=== PATIENT | female | born 1995 | race Caucasian/White ===

== ENCOUNTER 2019-03-16 11:04 | Emergency (ER) | payer OTHER, SELFPAY ==
[2019-03-16 11:28] VITALS: BP 121/76; PULSE 79; RESP 18; TEMP 36.6; O2SAT 100; BMI 34.2
--- NOTE | 2019-03-16 11:44 | DI.RAD.S_ITS ---
PROCEDURE: XR ACUTE ABDOMEN SERIES INDICATIONS: nausea, occiasional pain TECHNIQUE: One view chest and two views of the abdomen were acquired. COMPARISON: None. FINDINGS: Surgical changes and devices: None. Chest: Lungs are clear. Heart size is normal. No pleural effusions. No pneumoperitoneum. Abdomen: Bowel gas pattern is normal. No air-filled distended small bowel loops are evident demonstrating air-fluid levels. The calcification within the right upper quadrant may represent a gallstone. Visualized solid organ contours appear normal. Bones: No suspicious bony lesions. IMPRESSION: 1. No bowel obstruction. 2. Possible cholelithiasis. 3. No acute cardiopulmonary process. Dictated by: Eduardo Moffett M.D. on 03/16/2019 at 11:18 Approved by: Eduardo Moffett M.D. on 03/16/2019 at 11:20
--- NOTE | 2019-03-16 11:45 | DI.US.S_ITS ---
PROCEDURE: US ABDOMEN LIMITED INDICATIONS: NAUSEA X 2 DAYS, HISTORY OF GALLBLADDER PROBLEMS TECHNIQUE: Real-time focused scanning was performed of the abdomen, with image documentation. COMPARISON: None. FINDINGS: Imaged portions of the liver demonstrates increased echogenicity when compared to the right kidney. No obvious liver lesions are identified. The gallbladder is normal in size and contains a 1.5 cm mobile gallstone. No significant wall thickening is present. No pericholecystic fluid is evident. The patient did not exhibit a positive sonographic Jeffers's sign. The common bile duct is normal in size and measures approximately 2 mm. Please note that the right kidney, pancreas, abdominal aorta, and inferior vena cava where it are not imaged or not adequately imaged. IMPRESSION: 1. Cholelithiasis without convincing evidence of acute cholecystitis. 2. Probable hepatic steatosis. Please correlate clinically. Dictated by: Eduardo Moffett M.D. on 03/16/2019 at 11:59 Approved by: Eduardo Moffett M.D. on 03/16/2019 at 12:01
--- NOTE | 2019-03-16 11:46 | PC.NURSE ---
Pt complains of nausea at am BM and for 30 minutes post BM. Stools range from liquid/loose to soft formed.
[2019-03-16 11:51] LABS: Bacteria Urine None Seen; WBC Urine None Seen (0-5/HPF)
[2019-03-16 12:00] LABS: Culture Indicated Urine Cult Not Indicated; RBC Urine 5-10/HPF (0-5/HPF); Squamous Epithelial Cell Urine 5-10 /HPF (0-5/HPF)
--- NOTE | 2019-03-16 12:10 | ED_ITS ---
HPI - Nausea/Vomiting/Diarrhea General Chief complaint: Nausea/Vomiting/Diarrhea Stated complaint: nauseous x2 days Time Seen by Provider: 03/16/19 11:05 Source: patient Mode of arrival: Ambulatory Limitations: no limitations History of Present Illness HPI Narrative: 23-year-old female nonsmoker with history of arthritis presents with significant other and a chief complaint of severe nausea for the past 2 days with episodes lasting approximately 30 minutes in the morning soon after the attempt at a bowel movement. This nausea resolved without any specific intervention and results and no vomiting. At no point has she had any fever chills nor any pain. She is otherwise well and free of complaint and can libra erate oral hydration and food without difficulty. She has had some new medications added including meloxicam. Her last menstrual period was about 2 months ago, it is not abnormal for her to be miss periods. complaint: nausea Onset (ago): day(s) Description of Diarrhea: none Associated Abdominal Pain: No Severity: mild Relieving factors: none Exacerbating factors: bowel movement Associated symptoms: denies other symptoms Related Data Previous Rx's Medication Instructions Recorded ondansetron 4 mg PO TID-QID PRN #10 tab 03/16/19 pantoprazole [Protonix] 40 mg PO DAILY #30 tab 03/16/19 Allergies Allergy/AdvReac Type Severity Reaction Status Date / Time No Known Drug Allergies Allergy Verified 03/16/19 11:28 Review of Systems Constitutional Constitutional: Denies chills, Denies fatigue, Denies fever(s), Denies frequent falls, Denies lethargy and Denies weakness Eyes Eyes: Denies change in vision, Denies eye discharge, Denies irritation and Denies loss of vision ENT Ears, Nose, Mouth, and Throat: Denies change in voice, Denies dizziness, Denies neck pain, Denies sore throat and Denies throat swelling Cardiovascular Cardiovascular: Denies chest pain, Denies irregular heart rhythm, Denies lightheadedness, Denies palpitations, Denies dyspnea, Denies dyspnea on exertion and Denies orthopnea Respiratory Respiratory: Denies cough, Denies dyspnea, Denies dyspnea on exertion and Denies wheezing Gastrointestinal Gastrointestinal: Denies abdominal pain, Denies change in bowel habits, Denies diarrhea, Reports nausea and Denies vomiting Genitourinary Genitourinary: Denies hematuria, Denies flank pain, Denies urinary incontinence and Denies urinary urgency Musculoskeletal Musculoskeletal: Denies back pain, Denies muscle weakness, Denies neck pain, Denies numbness and Denies tingling Integumentary/Breasts Skin/Breast: Denies pruritus, Denies erythema, Denies rash and Denies wounds Neurologic Neurologic: Denies behavioral changes, Denies confusion, Denies dizziness, Denies frequent falls, Denies loss of vision, Denies numbness, Denies tingling and Denies weakness Psychiatric Psychiatric: Denies anxiety, Denies behavioral changes, Denies confusion, Denies depression, Denies homicidal ideation and Denies suicidal ideation Endocrine Endocrine: Denies fatigue, Denies flushing and Denies palpitations Hematologic/Lymphatic Hematologic/Lymphatic: Denies easy bruising Allergic/Immunologic Allergic/Immunologic: Denies urticaria, Denies throat swelling and Denies wheezing Patient History Social History Smoking Status: Never smoker Substance Use Type: marijuana Exam Narrative Exam Narrative: GENERAL: [23] year old patient appears stated age. Well- nourished, well-developed patient, in mild distress. HEAD: Atraumatic. Normocephalic. EYES: Pupils equal round and reactive. Extraocular motions intact. No scleral icterus. No injection or drainage. ENT: Nose without bleeding, purulent drainage. Throat without erythema, tonsillar hypertrophy or exudate. Airway patent. NECK: Trachea midline. Non tender CARDIOVASCULAR: Regular rate and rhythm without murmurs, gallops, or rubs. RESPIRATORY: Clear to auscultation. Breath sounds equal bilaterally. No wheezes, rales, or rhonchi. GASTROINTESTINAL: Abdomen soft, non-tender, nondistended. EXTREMITIES: No edema or joint tenderness. BACK: Nontender without deformity or crepitance. No flank tenderness. NEURO: AOx3. SKIN: No rash or erythema of visible areas Initial Vital Signs Initial Vital Signs: Vital Signs Temperature 97.9 F 03/16/19 11:28 Pulse Rate 79 03/16/19 11:28 Respiratory Rate 18 03/16/19 11:28 Blood Pressure 121/76 03/16/19 11:28 Pulse Oximetry 100 03/16/19 11:28 Course Orders Ordered: ED Orders 03/16/19 11:44 XR acute abdomen series Stat 03/16/19 11:45 US abdomen limited Stat 03/16/19 11:48 Urine Microscopic Stat 03/16/19 12:10 Complete Blood Count AUTO DIFF Stat Comprehensive Metabolic Panel Stat Lipase Stat Vital Signs Vital signs: Vital Signs - 8 hr 03/16/19 11:28 03/16/19 13:15 Temperature 97.9 F Pulse Rate 79 77 Respiratory Rate 18 16 Blood Pressure 121/76 111/72 Pulse Oximetry 100 96 MDM - Nausea/Vomiting/Diarrhea Lab Data Result diagrams: 03/16/19 12:10 03/16/19 12:10 Labs: Lab Results 03/16/19 03/16/19 03/16/19 Range/Units 11:48 12:10 12:10 WBC 9.4 (4.5-11.0) X10^3/uL RBC 4.96 (4.0-5.2) X10^6/uL Hgb 14.7 (12.0-16.0) g/dL Hct 43.2 (36-46) % MCV 87.1 (80-100) fL MCH 29.7 (26-34) PG MCHC 34.1 (30-36) % RDW 13.2 (11.6-14.8) % Plt Count 261 (150-400) X10^3/uL Neut % (Auto) 63.2 (50-75) % Lymph % (Auto) 28.7 (25-40) % [place] % (Auto) 4.6 (3-14) % Eos % (Auto) 1.1 L (2-4) % Baso % (Auto) 2.4 H (0-2) % Neut # (Auto) 5900 (6624-2487) /uL Lymph # (Auto) 2700 (3111-7654) /uL [place] # (Auto) 400 (0-900) /uL Eos # (Auto) 100 (0-450) /uL Baso # (Auto) 200 H (0-100) /uL Sodium 140 (137-145) mmol/L Potassium 4.7 (3.4-5.1) mmol/L Chloride 106 (98-107) mmol/L Carbon Dioxide 23 (22-32) mmol/L BUN 11 (7-17) mg/dL Creatinine 0.70 (0.52-1.04) mg/dL Estimated GFR > 60.0 (>60) mL/min BUN/Creatinine Ratio 15.7 (6-22) Glucose 93 (70-100) mg/dL Calcium 10.0 (8.4-10.2) mg/dL Total Bilirubin 0.6 (0.2-1.3) mg/dL AST 32 (14-36) IU/L ALT 18 (<35) IU/L Alkaline Phosphatase 90 (38-126) U/L Total Protein 8.7 H (6.3-8.2) g/dL Albumin 5.0 (3.5-5.0) g/dL Globulin 3.7 (1.7-4.1) g/dL Albumin/Globulin Ratio 1.4 (1.0-2.8) Lipase 103 (23-300) U/L Urine RBC 5-10/hpf H (0-5/HPF) Urine WBC None seen (0-5/HPF) Ur Squamous Epith Cells 5-10 /hpf H (0-5/HPF) Urine Bacteria None seen (None) Ur Culture Indicated? Cult not indicated Point of Care Testing Test Results Negative Urine Dip Bedside Urine Glucose Negative Bedside Urine Bilirubin - Negative Bedside Urine Ketone - Negative Urine Specific [place] 1.010 Bedside Urine Occult Blood + Bedside Urine pH 6.0 Bedside Urine Protein - Negative Bedside Urine Urobilinogen - Negative Bedside Urine Nitrite - Negative Bedside Urine Leukocytes - Negative Esterase Discharge Plan Departure Patient Disposition: Home Clinical Impression: Nausea Discharge Date/Time: 03/16/19 13:15 Instructions: DI for Nausea -- Adult Activity Restrictions/Additional Instructions: 1. Drink plenty of fluids with frequent small sips. 2. For the next 24 hours a clear liquid diet is advised. After that please e mploy a brat diet which would include bananas, rice, apples, toast. 3. Please take medications as directed. 4. Please follow-up with your doctor in the next 1-2 days. Call the office for an appointment. 5. Please return to the emergency Department for any worsening or persistent symptoms, such as increasing pain or fever. Prescriptions: New pantoprazole [Protonix] 40 mg tablet,delayed release (DR/EC) 40 mg PO DAILY Qty: 30 RF: 0 ondansetron 4 mg tablet,disintegrating 4 mg PO TID-QID PRN (Reason: nausea and vomiting) Qty: 10 RF: 0 Referrals: Srinivasa Montanez MD [Physician] -
[2019-03-16 12:24] LABS: Add Manual Diff / Slide Review NO; Basophils Absolute Auto 200 /uL (0-100); Basophils Percent Auto 2.4 % (0-2); Eosinophils Absolute Auto 100 /uL (0-450); Eosinophils Percent Auto 1.1 % (2-4); Hematocrit 43.2 % (36-46); Hemoglobin 14.7 g/dL (12.0-16.0); Lymphocytes Absolute Auto 2700 /uL (1100-4500); Lymphocytes Percent Auto 28.7 % (25-40); Mean Corpuscular HGB Conc 34.1 % (30-36); Mean Corpuscular Hemoglobin 29.7 PG (26-34); Mean Corpuscular Volume 87.1 fL (80-100); Monocytes Absolute Auto 400 /uL (0-900); Monocytes Percent Auto 4.6 % (3-14); Neutrophils Absolute Auto 5900 /uL (1500-7000); Neutrophils Percent Auto 63.2 % (50-75); Red Blood Cell Count 4.96 X10^6/uL (4.0-5.2); Red Cell Distribution Width 13.2 % (11.6-14.8); White Blood Cell Count 9.4 X10^3/uL (4.5-11.0)
[2019-03-16 12:29] LABS: Alanine Aminotransferase 18 IU/L (<35); Albumin Globulin Ratio 1.4 (1.0-2.8); Alkaline Phosphatase 90 U/L (38-126); Aspartate Aminotransferase 32 IU/L (14-36); BUN Creatinine Ratio 15.7 (6-22); Bilirubin Total 0.6 mg/dL (0.2-1.3); Blood Urea Nitrogen 11 mg/dL (7-17); Carbon Dioxide 23 mmol/L (22-32); Chloride 106 mmol/L (98-107); Estimated Glomerular Filt Rate > 60.0 mL/min (>60); Globulin 3.7 g/dL (1.7-4.1); Glucose 93 mg/dL (70-100); HEMOLYSIS 63 (0-50); Lipase 103 U/L (23-300); Potassium 4.7 mmol/L (3.4-5.1); Sodium 140 mmol/L (137-145); Total Protein 8.7 g/dL (6.3-8.2)
[2019-03-16 13:05] LABS: Platelet Count 261 X10^3/uL (150-400)
[2019-03-16 13:15] VITALS: BP 111/72; PULSE 77; RESP 16; O2SAT 96
== END 2019-03-16 13:15 | disposition home or self-care (01) ==
PROVIDERS: Emergency Provider Emergency Medicine
DX: R11.0 Nausea (principal); R10.9 Unspecified abdominal pain
CPT/HCPCS: 36415; 74022; 76705; 80053; 81003; 81015; 81025; 83690; 85025; 99282; 99284

== ENCOUNTER 2019-09-29 19:42 | Emergency (ER) | payer OTHER, SELFPAY ==
[2019-09-29 20:06] VITALS: BP 123/73; PULSE 92; RESP 18; TEMP 36.7; O2SAT 100; BMI 30.2
--- NOTE | 2019-09-29 21:05 | ED.ANXIETY ---
HPI - Anxiety General Chief Complaint: Anxiety Stated Complaint: mental health issues Time Seen by Provider: 09/29/19 20:59 Source: patient Mode of arrival: Ambulatory Limitations: no limitations History of Present Illness HPI narrative: Patient is a 24-year-old female here for evaluation of what she states was anxiety and a panic attack earlier today. She does have a history of anxiety panic attacks. She is not currently on any medications for these. She states that normally she can control these attacks with behavior modifications during the time. She states that she occasionally has self harm thoughts during these time. She denies them as suicidal thoughts. She states that often they are fleeting and she states she would never act on any of them. She does state that earlier today the thoughts were much more pervasive. She did not actually harm herself and currently does not have any suicidal or self-harm thoughts. She is here to see if she could get short-term anxiety medicines until she can talk with her counselor and also her primary provider. Related Data Home Medications Medication Instructions Recorded Confirmed cholecalciferol (vitamin D3) 1,250 50,000 unit PO QWEEK 03/20/19 03/20/19 mcg (50,000 unit) capsule ferrous sulfate 325 mg (65 mg 325 mg PO DAILY 03/20/19 03/20/19 iron) tablet meloxicam 15 mg tablet 15 mg PO DAILY 03/20/19 03/20/19 Previous Rx's Medication Instructions Recorded ondansetron 4 mg PO TID-QID PRN #10 tab 03/16/19 pantoprazole [Protonix] 40 mg PO DAILY #30 tab 03/16/19 lorazepam [Ativan] 0.5 mg PO TID PRN #20 tab 09/29/19 Allergies Allergy/AdvReac Type Severity Reaction Status Date / Time No Known Drug Allergies Allergy Verified 03/20/19 10:18 Review of Systems Constitutional Constitutional: Denies headache(s) ENT Ears, Nose, Mouth, and Throat: Denies headache(s) Cardiovascular Cardiovascular: Denies chest pain and Denies dyspnea Respiratory Respiratory: Denies dyspnea Gastrointestinal Gastrointestinal: Denies abdominal pain Integumentary/Breasts Skin/Breast: Denies rash Neurologic Neurologic: Denies headache(s) Psychiatric Psychiatric: Reports anxiety, Reports panic attacks, Denies homicidal ideation and Denies suicidal ideation Patient History Medical History (Updated 09/30/19 @ 02:03 by Vicente Lorenzana DO) Anemia (Acute) Anxiety (Acute) Chronic pain (Acute) Gallstones (Acute) Surgical History (Updated 03/20/19 @ 10:33 by Silvia Rock RN) Hx of appendectomy (Acute) Family History (Updated 03/20/19 @ 10:34 by Silvia Rock RN) Grandfather Hypertension Heart disease Diabetes mellitus Grandmother Cancer Social History marital status: household members: spouse, significant other and friend(s) occupational status: unemployed Smoking Status: Never smoker alcohol intake: current Smoking Status: Never smoker alcohol intake frequency: 0-2 drinks per day Substance Use Type: marijuana Exam Initial Vital Signs Initial Vital Signs: Vital Signs Temperature 98.1 F 09/29/19 20:06 Pulse Rate 92 H 09/29/19 20:06 Respiratory Rate 18 09/29/19 20:06 Blood Pressure 123/73 09/29/19 20:06 Pulse Oximetry 100 09/29/19 20:06 Const General: cooperative, comfortable, well developed, well groomed and No acute distress Limitations: mental status not altered HENMT Head: normal to inspection and normocephalic Resp Effort & Inspection: normal respiratory effort Cardio Rate: regular rate Skin Lesions: no lesions Rashes: no rashes Neuro General: alert and awake Cognition: normal cognition Speech: speech normal Extrem General: normal to inspection Psych Appearance: grossly normal and well kempt Scores GCS [place] coma scale eye opening: Spontaneous [place] coma scale verbal response: Orientated [place] coma scale motor response: Obey commands [place] coma scale total score: 15 Course Vital Signs Vital signs: Vital Signs - 8 hr 09/29/19 20:06 Temperature 98.1 F Pulse Rate 92 H Respiratory Rate 18 Blood Pressure 123/73 Pulse Oximetry 100 MDM - Anxiety Lab Data Labs: Point of Care Testing Test Results Negative Urine Dip Bedside Urine Glucose Negative Bedside Urine Bilirubin - Negative Bedside Urine Ketone + 15 Urine Specific [place] 1.025 Bedside Urine Occult Blood - Negative Bedside Urine pH 6.0 Bedside Urine Protein - Negative Bedside Urine Urobilinogen - Negative Bedside Urine Nitrite - Negative Bedside Urine Leukocytes - Negative Esterase MDM Narrative Medical decision making narrative: Patient is alert oriented x3, GCS 15, not clinically intoxicated. In my opinion has capacity make decisions. Denies any suicidal homicidal ideation. She is not currently having any panic attacks or anxiety issues. I feel that a short course of Ativan it was she can see her counselor primary provider is not unreasonable given her clinical presentation. She seems to have very good insight into her issues. She states she would never act on any of the self-harm thoughts that she has. States she will contact somewhat if thoughts to not go away. She was given return precautions and follow-up instructions. She expressed understanding and agreement. Discharge Plan Departure Patient Disposition: Home Clinical Impression: Anxiety Discharge Date/Time: 09/29/19 21:27 Instructions: DI for Anxiety -- Adult Activity Restrictions/Additional Instructions: Recommend that you contact your primary provider and your counselor to discuss long-term management of your anxiety. Return to the emergency department for any new or worsening symptoms like we discussed Prescriptions: New lorazepam [Ativan] 0.5 mg tablet 0.5 mg PO TID PRN (Reason: anxiety) Qty: 20 RF: 0 No Action ferrous sulfate [Feosol] 325 mg (65 mg iron) tablet 325 mg PO DAILY RF: 0 cholecalciferol (vitamin D3) 50,000 unit capsule 50,000 unit PO QWEEK RF: 0 meloxicam 15 mg tablet 15 mg PO DAILY RF: 0 pantoprazole [Protonix] 40 mg tablet,delayed release (DR/EC) 40 mg PO DAILY Qty: 30 RF: 0 ondansetron 4 mg tablet,disintegrating 4 mg PO TID-QID PRN (Reason: nausea and vomiting) Qty: 10 RF: 0 Referrals: Katy Greco ARNP [Primary Care Provider] -
== END 2019-09-29 21:27 | disposition home or self-care (01) ==
PROVIDERS: Emergency Provider Emergency Medicine; PCP Nurse Practitioner Family
DX: F41.9 Anxiety disorder, unspecified (principal)
CPT/HCPCS: 81003; 81025; 99282

== ENCOUNTER 2020-01-16 21:45 | Emergency (ER) | payer OTHER, SELFPAY ==
[2020-01-16 21:49] VITALS: PULSE 109; O2SAT 100
[2020-01-16 21:50] VITALS: BP 128/82; PULSE 109; O2SAT 100
[2020-01-16 21:52] VITALS: BP 128/82; PULSE 107; RESP 22; TEMP 36.8; O2SAT 100
[2020-01-16 22:00] VITALS: BP 122/69; PULSE 87; O2SAT 100
[2020-01-16] MEDS: SODIUM CHLORIDE 0.9% 1,000 ML 1000 ML IV (22:02)
[2020-01-16 22:14] LABS: Add Manual Diff / Slide Review NO; Basophils Absolute Auto 0 /uL (0-100); Basophils Percent Auto 0.5 % (0-2); Eosinophils Absolute Auto 0 /uL (0-450); Eosinophils Percent Auto 0.4 % (2-4); Hematocrit 32.4 % (36-46); Hemoglobin 10.2 g/dL (12.0-16.0); Lymphocytes Absolute Auto 2900 /uL (1100-4500); Lymphocytes Percent Auto 27.8 % (25-40); Mean Corpuscular HGB Conc 31.3 % (30-36); Mean Corpuscular Hemoglobin 22.5 PG (26-34); Mean Corpuscular Volume 71.9 fL (80-100); Monocytes Absolute Auto 500 /uL (0-900); Monocytes Percent Auto 4.7 % (3-14); Neutrophils Absolute Auto 6900 /uL (1500-7000); Neutrophils Percent Auto 66.6 % (50-75); Platelet Count 399 X10^3/uL (150-400); Red Blood Cell Count 4.51 X10^6/uL (4.0-5.2); White Blood Cell Count 10.4 X10^3/uL (4.5-11.0)
[2020-01-16 22:22] LABS: Pregnancy Test Serum,Qual Negative (Negative)
[2020-01-16 22:23] LABS: Alanine Aminotransferase 15 IU/L (<35); Albumin 4.5 g/dL (3.5-5.0); Albumin Globulin Ratio 1.3 (1.0-2.8); Alkaline Phosphatase 74 U/L (38-126); Aspartate Aminotransferase 24 IU/L (14-36); BUN Creatinine Ratio 18.2 (6-22); Bilirubin Total 0.4 mg/dL (0.2-1.3); Blood Urea Nitrogen 14 mg/dL (7-17); Calcium 9.6 mg/dL (8.4-10.2); Carbon Dioxide 22 mmol/L (22-32); Chloride 106 mmol/L (98-107); Estimated Glomerular Filt Rate > 60.0 mL/min (>60); Globulin 3.5 g/dL (1.7-4.1); Glucose 122 mg/dL (70-100); HEMOLYSIS < 15 (0-50); Lipase 95 U/L (23-300); Sodium 140 mmol/L (137-145)
[2020-01-16 22:30] VITALS: BP 109/57; PULSE 86; RESP 21; O2SAT 98
[2020-01-16 22:48] LABS: Ethanol (ETOH) < 10 mg/dL
[2020-01-16 23:00] VITALS: BP 123/60; PULSE 93; RESP 23; O2SAT 100
--- NOTE | 2020-01-16 23:01 | ED_ITS ---
HPI - Anxiety General Chief Complaint: Anxiety Stated Complaint: Collapsed at work Time Seen by Provider: 01/16/20 21:47 Source: patient Mode of arrival: Wheelchair Limitations: no limitations History of Present Illness HPI narrative: 24-year-old female here for evaluation of a syncopal episode. Patient states that she drove to work. She was sitting in the car prior to entering work she had which she describes as a panic attack. She has had panic attacks in the past. She does have medication that she takes for these. She did not take any of this medication during the time. She is unsure exactly what prompted the panic attack. Stat after about 30 minutes of sending her car she got up and went into work. While she was in work she stated that she ?disassociated ?on the floor of work. She then had problems getting up and had to have coworkers helped her up. Patient states that this was a panic neri ck/anxiety. Was very similar to prior episodes. The time my evaluation patient states that she feels much better. Related Data Home Medications Medication Instructions Recorded Confirmed cholecalciferol (vitamin D3) 1,250 50,000 unit PO QWEEK 03/20/19 03/20/19 mcg (50,000 unit) capsule ferrous sulfate 325 mg (65 mg 325 mg PO DAILY 03/20/19 03/20/19 iron) tablet meloxicam 15 mg tablet 15 mg PO DAILY 03/20/19 03/20/19 Previous Rx's Medication Instructions Recorded ondansetron 4 mg PO TID-QID PRN #10 tab 03/16/19 pantoprazole [Protonix] 40 mg PO DAILY #30 tab 03/16/19 lorazepam [Ativan] 0.5 mg PO TID PRN #20 tab 09/29/19 Allergies Allergy/AdvReac Type Severity Reaction Status Date / Time No Known Drug Allergies Allergy Verified 03/20/19 10:18 Review of Systems Constitutional Constitutional: Denies fever(s) and Denies headache(s) ENT Ears, Nose, Mouth, and Throat: Denies headache(s) Cardiovascular Cardiovascular: Denies chest pain and Denies dyspnea Respiratory Respiratory: Denies dyspnea Gastrointestinal Gastrointestinal: Denies abdominal pain Musculoskeletal Musculoskeletal: Denies arthralgias and Denies myalgias Neurologic Neurologic: Reports confusion and Denies headache(s) Psychiatric Psychiatric: Reports anxiety, Reports confusion and Reports panic attacks Patient History Medical History Anemia (Acute) Anxiety (Acute) Chronic pain (Acute) Gallstones (Acute) Surgical History Hx of appendectomy (Acute) Family History Grandfather Hypertension Heart disease Diabetes mellitus Grandmother Cancer Social History marital status: household members: spouse, significant other and friend(s) occupational status: unemployed Smoking Status: Never smoker alcohol intake: current Smoking Status: Never smoker alcohol intake frequency: a few times a month Substance Use Type: marijuana Exam Initial Vital Signs Initial Vital Signs: Vital Signs Pulse Rate 109 H 01/16/20 21:49 Pulse Oximetry 100 01/16/20 21:49 Const General: cooperative and comfortable HENMT Head: normal to inspection and normocephalic Resp Effort & Inspection: normal respiratory effort Auscultation: clear to auscultation bilaterally Cardio Rate: regular rate Rhythm: regular rhythm Skin Lesions: no lesions Rashes: no rashes Neuro General: patient alert, patient awake and patient oriented x3 Extrem General: normal to inspection and capillary refill normal Psych Appearance: grossly normal and well kempt Scores GCS [place] coma scale eye opening: Spontaneous [place] coma scale verbal response: Orientated [place] coma scale motor response: Obey commands [place] coma scale total score: 15 Course Orders Ordered: ED Orders 01/16/20 21:48 EKG-12 Lead Stat 01/16/20 21:55 Complete Blood Count AUTO DIFF Stat Comprehensive Metabolic Panel Stat Ethanol (ETOH) Stat Lipase Stat Test Serum,Qual Stat Discontinued Medications Sodium Chloride (Normal Saline 0.9%) 1,000 mls @ 1,000 mls/hr IV BOLUS ONE Stop: 01/16/20 22:46 Last Infusion: 01/16/20 23:07 Dose: 0 mls/hr Documented by: Admin: 01/16/20 22:02 Dose: 1,000 mls/hr Documented by: PEDRO Lorazepam (Ativan) 0.5 mg PO NOW ONE Stop: 01/16/20 23:02 Last Admin: 01/16/20 23:06 Dose: 0.5 mg Documented by: KGALLAG Vital Signs Vital signs: Vital Signs - 8 hr 01/16/20 21:49 01/16/20 21:50 01/16/20 21:52 Temperature 98.2 F Pulse Rate 109 H 109 H 107 H Respiratory Rate 22 Blood Pressure 128/82 128/82 Pulse Oximetry 100 100 100 01/16/20 22:00 01/16/20 22:30 01/16/20 23:00 Temperature Pulse Rate 87 86 93 H Respiratory Rate 21 23 Blood Pressure 122/69 109/57 L 123/60 Pulse Oximetry 100 98 100 MDM - Anxiety Lab Data Attestation: I reviewed the patient's lab results. Result diagrams: 01/16/20 21:55 01/16/20 21:55 Labs: Lab Results 01/16/20 01/16/20 01/16/20 Range/Units 21:55 21:55 21:55 WBC 10.4 (4.5-11.0) X10^3/uL RBC 4.51 (4.0-5.2) X10^6/uL Hgb 10.2 L (12.0-16.0) g/dL Hct 32.4 L (36-46) % MCV 71.9 L (80-100) fL MCH 22.5 L (26-34) PG MCHC 31.3 (30-36) % RDW 17.0 H (11.6-14.8) % Plt Count 399 (150-400) X10^3/uL Neut % (Auto) 66.6 (50-75) % Lymph % (Auto) 27.8 (25-40) % [place] % (Auto) 4.7 (3-14) % Eos % (Auto) 0.4 L (2-4) % Baso % (Auto) 0.5 (0-2) % Neut # (Auto) 6900 (9796-6491) /uL Lymph # (Auto) 2900 (5137-6965) /uL [place] # (Auto) 500 (0-900) /uL Eos # (Auto) 0 (0-450) /uL Baso # (Auto) 0 (0-100) /uL Sodium 140 (137-145) mmol/L Potassium 4.0 (3.4-5.1) mmol/L Chloride 106 (98-107) mmol/L Carbon Dioxide 22 (22-32) mmol/L BUN 14 (7-17) mg/dL Creatinine 0.77 (0.52-1.04) mg/dL Estimated GFR > 60.0 (>60) mL/min BUN/Creatinine Ratio 18.2 (6-22) Glucose 122 H (70-100) mg/dL Calcium 9.6 (8.4-10.2) mg/dL Total Bilirubin 0.4 (0.2-1.3) mg/dL AST 24 (14-36) IU/L ALT 15 (<35) IU/L Alkaline Phosphatase 74 (38-126) U/L Total Protein 8.0 (6.3-8.2) g/dL Albumin 4.5 (3.5-5.0) g/dL Globulin 3.5 (1.7-4.1) g/dL Albumin/Globulin Ratio 1.3 (1.0-2.8) Lipase 95 (23-300) U/L Serum , Qual Negative (Negative) Ethyl Alcohol < 10 ( - 10) mg/dL ECG Data Attestation: I personally reviewed and interpreted this ECG as follows: Prior ECG tracings: not available for review Interpretation: Sinus rhythm Ventricular rate 89 Normal axis Normal QRS Normal QTC No ST T wave changes MDM Narrative Medical decision making narrative: Patient had a panic attack. She stated this is a panic attack and she has had these in the past. She was given Ativan here in the emergency department. States she feels better. Will hold on further workup. Have her follow up with primary doctor. She expressed understanding and agreement. Discharge Plan Departure Patient Disposition: Home Clinical Impression: Panic attack Discharge Date/Time: 01/16/20 23:27 Instructions: DI for Anxiety -- Adult Activity Restrictions/Additional Instructions: Recommend that you continue to take all of your medications as directed. Also recommend that you do make contact with the psychiatrist to schedule a follow-up appointment to discuss potential further management of your panic attack/anxiety. Return to the emergency department for any new or worsening symptoms Prescriptions: No Action ferrous sulfate [Feosol] 325 mg (65 mg iron) tablet 325 mg PO DAILY RF: 0 cholecalciferol (vitamin D3) 50,000 unit capsule 50,000 unit PO QWEEK RF: 0 meloxicam 15 mg tablet 15 mg PO DAILY RF: 0 pantoprazole [Protonix] 40 mg tablet,delayed release (DR/EC) 40 mg PO DAILY Qty: 30 RF: 0 ondansetron 4 mg tablet,disintegrating 4 mg PO TID-QID PRN (Reason: nausea and vomiting) Qty: 10 RF: 0 lorazepam [Ativan] 0.5 mg tablet 0.5 mg PO TID PRN (Reason: anxiety) Qty: 20 RF: 0 Referrals: Katy Greco ARNP [Primary Care Provider] -
[2020-01-16] MEDS: LORazepam 0.5 MG TABLET PO (23:06)
== END 2020-01-16 23:27 | disposition home or self-care (01) ==
PROVIDERS: Emergency Provider Emergency Medicine; PCP Nurse Practitioner Family
DX: F41.0 Panic disorder [episodic paroxysmal anxiety] (principal); R55 Syncope and collapse; R41.0 Disorientation, unspecified
CPT/HCPCS: 36415; 80053; 80320; 83690; 84703; 85025; 93005; 93010; 96360; 99284

== ENCOUNTER → 2020-09-01 10:52 | Outpatient (CLI) | payer OTHER, SELFPAY ==
[2020-09-01 12:33] LABS: Alanine Aminotransferase 15 IU/L (<35); Albumin 4.5 g/dL (3.5-5.0); Albumin Globulin Ratio 1.3 (1.0-2.8); Alkaline Phosphatase 82 U/L (38-126); Aspartate Aminotransferase 25 IU/L (14-36); BUN Creatinine Ratio 12.9 (6-22); Bilirubin Total 0.2 mg/dL (0.2-1.3); Blood Urea Nitrogen 9 mg/dL (7-17); Calcium 9.5 mg/dL (8.4-10.2); Carbon Dioxide 26 mmol/L (22-32); Chloride 106 mmol/L (98-107); Estimated Glomerular Filt Rate > 60.0 mL/min (>60); Globulin 3.4 g/dL (1.7-4.1); Glucose 99 mg/dL (70-100); HEMOLYSIS < 15 (0-50); Potassium 4.7 mmol/L (3.4-5.1); Sodium 139 mmol/L (137-145); Total Protein 7.9 g/dL (6.3-8.2)
[2020-09-01 12:49] LABS: Lithium < 0.2 mmol/L (0.6-1.2)
[2020-09-01 12:59] LABS: Free T4, Direct Thyroxine 0.84 ng/dL (0.78-2.19)
[2020-09-01 13:13] LABS: Thyroid Stimulating Hormone 3.34 uIU/mL (0.47-4.68)
== END ==
PROVIDERS: PCP Family Medicine; Referring Provider Psychiatry & Neurology Psychiatry; Visit Provider Psychiatry & Neurology Psychiatry
DX: F31.9 Bipolar disorder, unspecified (principal); F60.3 Borderline personality disorder; F41.1 Generalized anxiety disorder
CPT/HCPCS: 36415; 80053; 80178; 84439; 84443; 90833; 99214

== ENCOUNTER → 2020-10-05 11:16 | Outpatient (CLI) | payer OTHER, SELFPAY ==
[2020-10-05 12:43] LABS: Lithium < 0.2 mmol/L (0.6-1.2)
== END ==
PROVIDERS: PCP Family Medicine; Referring Provider Psychiatry & Neurology Psychiatry; Visit Provider Psychiatry & Neurology Psychiatry
DX: F31.9 Bipolar disorder, unspecified (principal); F60.3 Borderline personality disorder; F32.2 Major depressive disorder, single episode, severe without psychotic features; F41.1 Generalized anxiety disorder
CPT/HCPCS: 36415; 80178; 90833; 99214

== ENCOUNTER → 2020-11-17 11:05 | Outpatient (CLI) | payer OTHER, SELFPAY ==
[2020-11-17 13:27] LABS: Alanine Aminotransferase 13 IU/L (<35); Albumin 4.5 g/dL (3.5-5.0); Albumin Globulin Ratio 1.3 (1.0-2.8); Alkaline Phosphatase 66 U/L (38-126); Aspartate Aminotransferase 25 IU/L (14-36); BUN Creatinine Ratio 11.8 (6-22); Bilirubin Total 0.6 mg/dL (0.2-1.3); Blood Urea Nitrogen 9 mg/dL (7-17); Carbon Dioxide 22 mmol/L (22-32); Chloride 107 mmol/L (98-107); Estimated Glomerular Filt Rate > 60.0 mL/min (>60); Globulin 3.5 g/dL (1.7-4.1); Glucose 91 mg/dL (70-100); HEMOLYSIS < 15 (0-50); Potassium 4.2 mmol/L (3.4-5.1); Sodium 138 mmol/L (137-145)
[2020-11-17 14:09] LABS: Lithium 0.7 mmol/L (0.6-1.2)
== END ==
PROVIDERS: PCP Family Medicine; Referring Provider Psychiatry & Neurology Psychiatry; Visit Provider Psychiatry & Neurology Psychiatry
DX: F31.9 Bipolar disorder, unspecified (principal)
CPT/HCPCS: 36415; 80053; 80178